=== PATIENT | male | born 1975 | race Caucasian/White ===

== ENCOUNTER 2022-07-03 09:40 | Emergency (ER) | payer OTHER, BC | END 2022-07-03 11:13 | disposition home or self-care (01) | LOC: JD.ED 09:40 → EDBD 09:40 → JD.ED 11:13 | DX: S43.101A Unspecified dislocation of right acromioclavicular joint, initial encounter (principal); I10 Essential (primary) hypertension; V19.9XXA Pedal cyclist (driver) (passenger) injured in unspecified traffic accident, initial encounter | CPT/HCPCS: 73030-26-RT; 73030-RT; 99283 ==